=== PATIENT | female | born 1985 | race Hispanic/Latino ===

== ENCOUNTER → 2019-06-08 | Day surgery (SDC) | payer OTHER ==
[2019-06-06 09:44] LABS: BASOPHILS % 0.6 % (0.0-1.0); EOSINOPHILS # (AUTO) 0.1 (0.0-0.4); EOSINOPHILS % 1.8 % (0.0-6.0); HEMATOCRIT 39.1 % (34.2-44.1); HEMOGLOBIN 12.7 g/dL (12.0-16.0); LYMPHOCYTES # (AUTO) 2.2 (1.0-3.2); LYMPHOCYTES % 32.4 % (18.0-39.1); MEAN CORPUSCULAR HEMOGLOBIN 31.5 pg (28-32); MEAN CORPUSCULAR HGB CONC 32.5 g/dL (31-35); MONOCYTES # (AUTO) 0.6 (0.2-0.8); MONOCYTES % 9.7 % (4.4-11.3); NEUTROPHILS # (AUTO) 3.7 (2.1-6.9); NEUTROPHILS % 55.3 % (38.7-80.0); PLATELET COUNT 276 x10e3/uL (140-360); RED BLOOD COUNT 4.03 x10e6/uL (3.6-5.1); RED CELL DISTRIBUTION WIDTH 12.2 % (11.7-14.4)
[~2019-06-08] MED LIST: ACETAMINOPHEN 1000 MG/100 ML IV ONE; BUPIVACAINE 0.25% 30ML SDV INJ ONE; BUPIVACAINE 0.25%/EPI 30ML SDV INJ ONE; DEXAMETHASONE SOD PHOS INJ 4 MG/ML VIAL ONE; FENTANYL CITRATE/PF 100MCG/2 ML INJ ONE; GLYCOPYRROLATE INJ 0.2 MG/ML VIAL ONE; KETOROLAC TROMETHAMINE 30 MG/ML VIAL ONE; LIDOCAINE HCL 2% LOCAL INJ 5 ML SDV VIAL INJ ONE; MEPERIDINE HCL INJ 25 MG/ML VIAL ONE; MIDAZOLAM HCL 2 MG/2 ML VIAL ONE; NEOSTIGMINE 1 MG/ML 10ML VIAL ONE; ONDANSETRON HCL INJ 2MG/ML 2ML 2 MG/ML VIAL ONE; PROPOFOL IV EMULSION 10 MG/ML 20 ML VIAL ONE; ROCURONIUM BROMIDE 10 MG/ML 5ML VIAL ONE; SEVOFLURANE INHAL SOLN 250 ML PEN BTL ONE
[2019-06-08 15:40] VITALS: BP 103/75
--- NOTE | 2019-06-08 16:53 | Operative Report ---
DATE OF PROCEDURE: SURGEON: Aura Hernandez MD PREOPERATIVE DIAGNOSIS: Left dermoid cyst with pelvic pain. POSTOPERATIVE DIAGNOSIS: Left dermoid cyst with pelvic pain. PROCEDURE: Left ovarian cystectomy. ESTIMATED BLOOD LOSS: Minimal. DESCRIPTION OF PROCEDURE: The patient was taken to the OR. General anesthesia was induced. She was prepped and draped in a normal sterile fashion, placed in dorsal lithotomy position. After examination under anesthesia, a HUMI self-retaining uterine manipulator was passed through the cervix into the uterine cavity. Gloves were changed and two Allis clamps were applied at the umbilicus. Single-port laparoscopy in GelPOINT was performed. A 2 cm umbilical skin incision was made and subcutaneous tissue dissected with a hemostat until the rectus fascia was reached, held with Kochers and opened in the midline with the scalpel. The two edges of the rectus fascia was sutured with a stay suture of Vicryl 0. The incision was extended vertically using curved Lehman scissors. The GelPOINT was placed inside the abdomen and peripheral edge was made sure not to catch any of the abdominal organs or abdominal tissue. Abdomen was inflated with carbon dioxide gas and the patient was placed in Trendelenburg position. The following findings; normal-looking uterus, right tube and ovary; left tube showed a 4 to 5 cm ovarian cyst, multiloculated with the left fimbria attached to the ovarian cyst. Using the LigaSure and the grasper to left ovarian cyst was excised together with the fimbriated end of the left tube and hemostasis was found to be adequate. Using the LigaSure suction and irrigation of peritoneal cavity with warm saline was performed. Upper abdomen was grossly normal. The specimen was removed through the umbilical incision and the abdomen was deflated. Rectus fascia approximated using Vicryl 0 continuous stitch with couple of interrupted sutures placed in the middle of the fascia. Skin was closed with subcu Vicryl 4-0 and Dermabond was applied. Marcaine with epinephrine was injected around the umbilicus for analgesia. The patient tolerated the procedure well. Lap, instrument, and needle counts were correct x2 at the end of procedure. The patient's partner was told, and the procedure was explained in details, and pictures was also noted that to the patient's family. Aura Hernandez MD DD/MODL /[id number]
== END | disposition home or self-care (01) ==
LOC: OR 11:27
PROVIDERS: ATTEND Obstetrics & Gynecology
DX: L72.0 Epidermal cyst (principal); D27.1 Benign neoplasm of left ovary; R10.2 Pelvic and perineal pain; Z01.812 Encounter for preprocedural laboratory examination
CPT/HCPCS: 36415; 58662; 84702; 85025; 88305; J0131; J1100; J1885; J2001; J2175; J2250; J2405; J2704; J2710; J3010; 88304